=== PATIENT | female | born 1985 | race African-American/Black ===

== ENCOUNTER 2017-05-09 10:01 | Emergency (ER) | payer OTHER ==
[~2017-05-09] VITALS: Ht 160 cm; Wt 63.0 kg
[2017-05-09 10:43] LABS: INFLUENZA A NONE DETECTED (NONE DETECT); INFLUENZA B NONE DETECTED (NONE DETECT)
[2017-05-09 10:45] VITALS: BP 137/87
[2017-05-09] MEDS ORDERED: TESSALON PER100 MG PO (10:47)
[2017-05-09] MEDS ORDERED: ZITHROMAX250 MG PO (10:47)
== END 2017-05-09 10:45 | disposition home or self-care (01) | DRG 203 ==
LOC: ED 10:01
PROVIDERS: Emergency Medicine
DX: J20.9 Acute bronchitis, unspecified (principal); R05 Cough; R10.30 Lower abdominal pain, unspecified

== ENCOUNTER 2017-08-24 16:28 | Emergency (ER) | payer OTHER ==
[~2017-08-24] VITALS: Ht 160 cm; Wt 70.0 kg
[~2017-08-24 16:28] MED LIST: TESSALON PER100 MG PO; ZITHROMAX250 MG PO
[2017-08-24 17:38] LABS: URINE BLOOD DIPSTICK MODERATE (NEGATIVE); URINE COLOR YELLOW; URINE GLUCOSE - DIPSTICK NEGATIVE (NEGATIVE); URINE KETONE >=80 mg/dL (NEGATIVE); URINE LEUK ESTERASE NEGATIVE (NEGATIVE); URINE NITRITE - DIPSTICK NEGATIVE (Negative); URINE PROTEIN - DIPSTICK 30 mg/dL (NEG-TRACE); URINE SPECIFIC GRAVITY 1.025; URINE UROBILINOGEN - DIPSTICK 0.2 E.U./dL (0.2)
[2017-08-24 17:39] LABS: URINE BILIRUBIN - DIPSTICK NEGATIVE (NEGATIVE); URINE CLARITY HAZY
[2017-08-24 17:45] LABS: URINE SQUAMOUS EPITHELIAL CELL MANY EPI/hpf (0-FEW); URINE WBC 0-2 WBC/hpf (0-5)
[2017-08-24 17:51] LABS: ALBUMIN 4.4 g/dL (3.2-5.0); ALKALINE PHOSPHATASE 52 u/l (38-126); ANION GAP 20 (6-22 (CALC)); BILIRUBIN, TOTAL 0.8 mg/dL (0.0-1.4); BUN 7 mg/dL (7-17); BUN/CREATININE RATIO 10 (12-20 (CALC)); CARBON DIOXIDE 22 mmol/l (22-30); CHLORIDE 100 mmol/l (95-108); CREATININE 0.7 mg/dL (0.5-1.0); GFR > 60 ML/MIN (>=60 (CALC)); GFR FOR AFR.AMER. > 60 ML/MIN (>=60 (CALC)); SGOT/AST 25 u/l (14-36); SGPT/ALT 31 u/l (9-52); SODIUM 138 mmol/l (137-146); TOTAL PROTEIN 8.2 g/dL (6.3-8.2)
[2017-08-24] MEDS ORDERED: ZOFRAN4 MG/TAB PO (18:03)
[2017-08-24 18:35] VITALS: BP 118/71
== END 2017-08-24 18:36 | disposition home or self-care (01) | DRG 781 ==
LOC: ED 16:28
PROVIDERS: Emergency Medicine
DX: O21.9 Vomiting of pregnancy, unspecified (principal); N89.8 Other specified noninflammatory disorders of vagina; Z3A.01 Less than 8 weeks gestation of pregnancy